=== PATIENT | female | born 2000 | race Caucasian/White ===

== ENCOUNTER 2020-05-13 16:42 | Emergency (ER) | payer SELFPAY ==
[2020-05-13 16:57] VITALS: BP 111/72; PULSE 95; RESP 16; TEMP 36.7; O2SAT 98
--- NOTE | 2020-05-13 17:24 | ED.FEMALEGU ---
HPI - Female Genitourinary General Chief complaint: CERTIFIED PHYSICIAN'S ASSISTANT Stated complaint: + / IUD falling out Time Seen by Provider: 05/13/20 16:57 Source: patient Mode of arrival: ambulatory Limitations: no limitations History of Present Illness HPI Narrative: THis patient is a 20 year old female with history of bipolar who presents for evaluation of a dislodged IUD. She states she had a positive test 2 days. She states she took the test because she woke up and her abdomen was bloated and she 'felt movement . She also noticed that her IUD was dislodged. She states she was pulling on it and it feels like it is caught. She came to ER to get the IUD removed. She states she has irregular menses so she is unsure of LMP . She reports mild spotting today. Related Data Home Medications Medication Instructions Recorded Confirmed No Home Medications 05/13/20 05/13/20 Allergies Allergy/AdvReac Type Severity Reaction Status Date / Time Careless [place] AdvReac Mild POISON ENE Uncoded 05/13/20 17:05 Review of Systems Review of Systems: All systems reviewed & are unremarkable except as noted in HPI and below Gastrointestinal: Gastrointestinal: Denies diarrhea and Denies vomiting Genitourinary: Genitourinary: Denies hematuria, Reports nocturia and Denies flank pain PMFSH Past Medical History Medical History (Updated 05/13/20 @ 19:08 by Saumya Her MD) Bipolar disorder Surgical History Surgical History (Updated 05/13/20 @ 17:28 by Saumya Her MD) No pertinent past surgical history Social History Social History (Updated 05/13/20 @ 17:28 by Saumya Her MD) Smoking status: Never smoker Gender identity (if verbalized by the patient): Female Exam Const: General: alert Orientation/consciousness: patient oriented x3 Eyes: EOM: EOMs intact bilaterally Resp: Effort & Inspection: normal respiratory effort and no retractions Auscultation: clear to auscultation bilaterally Cardio: Rate: regular rate Rhythm: regular rhythm Heart sounds: no murmurs GI: GI Palp: Yes Soft to palpation, No Tenderness to palpation present (GI) and No Guarding due to palpation present (GI) Auscultation: normal bowel sounds : General: Yes no CVA tenderness Speculum Exam - Cervix: Cervical os closed Other: IUD string , appears copper hang out , Skin: General skin exam: normal color Neuro: General: patient oriented x3 and moves all extremities Course Reevaluation(s) Reevaluation #1: I Discussed with patient that her test are negative. She is concerned that she is bloated and swollen. She is refusing imaging because she thinks she is . I have discusse with patient that her test have been negative. I also performed bedside ultrasound and I do not appreciated a . She is stating she would like to be discharged. Date: 05/13/20 Time: 18:40 Consultations Consultation #1: I Discussed with DR. Garcia who is extrusion manager for OBGYN. She states she can see patient tomorrow in clinic at 11 am for IUD removal attempted Date: 05/13/20 Time: 19:05 Vital Signs Vital signs: Vital Signs Temperature 98.1 F 05/13/20 16:57 Pulse Rate 95 05/13/20 16:57 Respiratory Rate 16 05/13/20 16:57 Blood Pressure 111/72 05/13/20 16:57 Pulse Oximetry 98 05/13/20 16:57 Temperature 98.1 F 05/13/20 16:57 Pulse Rate 65 05/13/20 19:20 Respiratory Rate 18 05/13/20 19:20 Blood Pressure 124/85 05/13/20 19:20 Pulse Oximetry 97 05/13/20 19:20 MDM - Female Genitourinary Lab Data Attestation: I reviewed the patient's lab results. Result diagrams: 05/13/20 17:59 05/13/20 17:59 Labs: Lab Results 05/13/20 05/13/20 05/13/20 Range/Units 17:33 17:59 17:59 WBC 10.6 H (4.5-10.0) K/mm3 RBC 5.00 (4.2-5.4) M/mm3 Hgb 15.2 H (12.0-15.0) g/dL Hct 45.9 (37.0-47.0) % MCV 91.8 (80-100) fl MCH 30.4 (26-34) pg MCHC 33
[2020-05-13 17:46] LABS: Add Urine Microscopic? YES; Appearance Urine Clear (Clear); Bacteria Urine Trace /hpf; Bilirubin Urine Negative (Negative); Blood Urine 2+ (Negative); Color Urine Straw (Yellow); Glucose Urine UA Negative (Negative); Ketones Urine Negative (Negative); Leukocyte Esterase Ur Negative LEU/UL (Negative); Mucus Urine Rare /lpf; Nitrate Urine Negative (Negative); Protein Urine Negative (Negative); RBC Urine 0-2 /hpf (0-2); Specific Grav Ur 1.013 (1.001-1.035); Squamous Epithelial Cell Urine Moderate /hpf (Few); Urobilinogen Urine Negative mg/dL (<2.0); WBC Urine 0-3 /hpf
[2020-05-13 18:06] LABS: Basophils Absolute Auto 0.1 K/mm3 (0.0-0.1); Basophils Percent Auto 0.7 % (0.2-1.2); Eosinophils Absolute Auto 0.2 K/mm3 (0-0.3); Eosinophils Percent Auto 1.6 % (0-4.4); Hematocrit 45.9 % (37.0-47.0); Hemoglobin 15.2 g/dL (12.0-15.0); Immature Granulocyte Absolute 0.07 K/mm3 (0.00-0.031); Immature Granulocyte Percent A 0.7 % (0-0.5); Lymphocytes Absolute Auto 2.14 K/mm3 (0.9-3.2); Lymphocytes Percent Auto 20.1 % (18.3-44.2); Mean Corpuscular HGB Conc 33.1 g/dl (32-36); Mean Corpuscular Hemoglobin 30.4 pg (26-34); Mean Corpuscular Volume 91.8 fl (80-100); Mean Platelet Volume 9.3 fl (7.4-10.4); Monocytes Absolute Auto 0.7 K/mm3 (0.1-0.6); Monocytes Percent Auto 6.5 % (2.6-8.5); Neutrophils Absolute Auto 7.5 K/mm3 (1.3-6.7); Neutrophils Percent Auto 70.4 % (45.5-73.1); Platelet Count Result 329 k/mm3 (150-375); Red Cell Distribution Width 12.6 % (11.5-14.5); White Blood Count 10.6 K/mm3 (4.5-10.0)
[2020-05-13 18:20] LABS: Alanine Aminotransferase 17 U/L (4-35); Albumin Level 4.2 g/dL (3.5-5.1); Alkaline Phosphatase 93 U/L (38-126); Anion Gap 8 mmol/L (8-16); Aspartate Amino Transferase 25 U/L (14-36); Bilirubin,Total 0.5 mg/dL (0.2-1.3); Blood Urea Nitrogen 13 mg/dL (7-17); Calcium 9.1 mg/dL (8.4-10.2); Carbon Dioxide 27 mmol/L (22-30); Chloride 104 mmol/L (98-107); Estimated CRCL calculation 115 ml/min; Estimated Glomerular Filt Rate > 60; Glucose 96 mg/dL (65-105); Sodium 139 mmol/L (137-145)
[2020-05-13 18:36] LABS: Beta HCG Quantitative < 2.39 mIU/ML
[2020-05-13 19:20] VITALS: BP 124/85; PULSE 65; RESP 18; O2SAT 97
== END 2020-05-13 19:21 | disposition home or self-care (01) ==
PROVIDERS: Emergency Provider General Practice; PCP Family Medicine Adolescent Medicine
DX: T83.32XA Displacement of intrauterine contraceptive device, initial encounter (principal)
CPT/HCPCS: 36415; 80053; 81001; 81025; 84702; 85025; 99283

== ENCOUNTER 2022-01-30 10:20 | Outpatient (CLI) | payer OTHER, SELFPAY ==
[2022-01-30 10:53] VITALS: BP 99/64; PULSE 99
[2022-01-30 11:01] VITALS: BP 112/64; PULSE 98
[2022-01-30 11:30] VITALS: BP 112/64
== END 2022-01-30 11:38 | disposition home or self-care (01) ==
LOC: ANHOBPP 11:36 → ANHOBOP 11:50 → ANHOBPP 11:50
PROVIDERS: PCP Advanced Practice Midwife; Visit Provider Obstetrics & Gynecology
DX: O42.90 Premature rupture of membranes, unspecified as to length of time between rupture and onset of labor, unspecified weeks of gestation (principal); Z3A.00 Weeks of gestation of pregnancy not specified
CPT/HCPCS: 59025; 84112; 99199

== ENCOUNTER 2022-03-07 12:11 | Outpatient (RCR) | payer OTHER, SELFPAY ==
[2022-03-07 12:58] VITALS: BP 113/73; PULSE 108
== END 2022-03-07 12:30 | disposition home or self-care (01) ==
LOC: ANHOBOP 12:11
PROVIDERS: PCP Advanced Practice Midwife; Visit Provider Obstetrics & Gynecology
DX: O36.8130 Decreased fetal movements, third trimester, not applicable or unspecified (principal); Z3A.33 33 weeks gestation of pregnancy
CPT/HCPCS: 59025

== ENCOUNTER 2022-03-08 15:03 | Inpatient (IN) | payer OTHER, SELFPAY ==
[2022-03-08] VITALS (17 sets, daily range): BP systolic 43–150; BP diastolic 27–136; PULSE 84–177; RESP 18; TEMP 37.2–37.7; O2SAT 98–100; BMI 34.3
--- OUTSIDE RECORDS SUMMARY | 2022-03-08 15:14 | XMS_ITS | Encounter Summary ---
:2000 Author Reason for Visit None recorded. Assessment and Plan 1. Small for gestational age fetus ? US, obstetric, follow-up Discussion Note: None recorded.Patient educational handouts: No information available. Plan of Care Reminders Provider Appointments Induction 03/11/2022 Kasandra Bennett CNM 5:00AM ? Ob Routine 03/18/2022 Dawn llanos MD 1:15PM ? Ob Routine 04/01/2022 Kasandra Bennett CNM 11:15AM Lab None recorded. ? ? Referral None recorded. ? ? Procedures None recorded. ? ? Surgeries None recorded. ? ? Imaging US, Obstetric, Follow-up 01/14/2022 Sae almazan Medications Name Start Date ? ? ? Medications Administered None recorded. Vitals None recorded. Results Lab Results None recorded. Allergies Code Code System Name Reaction Severity Onset NKDA ? ? ? Problems Name Status Onset Date Source ? Active 10/03/2021 ? Mixed Anxiety and Depressive Disorder Active ? ? Small for Gestational Age Fetus Active ? ? Cyst of Right Ovary Active ? ? Procedures Date Name Performed by ? 01/14/2022 US, Obstetric, Follow-up [place] [address] [place] [address] ([address]) Vaccine List None recorded. Social History Tobacco Smoking Status Unknown If Ever Smoked
--- OUTSIDE RECORDS SUMMARY | 2022-03-08 15:14 | XMS_ITS | Encounter Summary ---
:2000 Author Reason for Visit OB visit Assessment and Plan 1. Routine care Discussion Note: None recorded.Patient educational handouts: No information available. Plan of Care Reminders Provider Appointments Induction 03/11/2022 5:00AM Kasandra olson CNM ? Ob Routine 03/18/2022 1:15PM Dawn Aguilar MD ? Ob Routine 04/01/2022 11:15AM Kasandra ca CNM Lab None recorded. ? ? Referral None recorded. ? ? Procedures None recorded. ? ? Surgeries None recorded. ? ? Imaging None recorded. ? ? Medications Name Start Date ? ? ? Medications Administered None recorded. Vitals Height Weight BMI Blood Pressure 5 ft 3 in 186 lbs 32.9 kg/m2 109/73 mm[Hg] Results Lab Results None recorded. Allergies Code Code System Name Reaction Severity Onset NKDA ? ? ? Problems Name Status Onset Date Source ? Active 10/03/2021 ? Mixed Anxiety and Depressive Disorder Active ? ? Small for Gestational Age Fetus Active ? ? Cyst of Right Ovary Active ? ? Procedures Date Name Performed by ? 01/14/2022 , Obstetric, Follow-up [place] [address] [place] [address] ([address]) Vaccine List None recorded. Social History Tobacco Smoking Status Unknown If Ever Smoked Do you have difficulty walking or climbing stairs? N What type of d
--- OUTSIDE RECORDS SUMMARY | 2022-03-08 15:14 | XMS_ITS | Encounter Summary ---
:2000 Author Reason for Visit OB visit OB [id number] EDC 03/16/2022 LMP 05/30/2021 Assessment and Plan Assessment Note Patient is _38__weeks . Discuss ed plan. 1. Routine care Discussion Note: None recorded.Patient [...] BMI Blood Pressure 5 ft 3 in 194 lbs 34.4 kg/m2 114/76 mm[Hg] Results Lab Results None recorded. Allergies Code Code System Name Reaction Severity Onset NKDA ? ? ? Problems Name Status Onset Date Source ? Active 10/03/2021 ? Mixed Anxiety and Depressive Disorder Active ? ? Small for Gestational Age Fetus Active ? ? Cyst of Right Ovary Active ? ? Procedures None recorded. Vaccine List None recorded. Social History Tobacco Smoking Status Unknown If Ever Smoked Do you have difficulty walking or climbing stairs? N What type of diet are you following? REGULAR Are you able to walk? YESWOREST Are you able to care for yourself? Y
--- OUTSIDE RECORDS SUMMARY | 2022-03-08 15:14 | XMS_ITS | Encounter Summary ---
:2000 Author Reason for Visit OB visit OB [id number] EDC 03/16/2022 LMP 05/30/2021 Assessment and Plan Assessment Note Patient is _32__weeks . Discuss ed plan. 1. Routine care [...] BMI Blood Pressure 5 ft 3 in 191 lbs 33.8 kg/m2 111/73 mm[Hg] Results Lab Results None recorded. Allergies Code Code System Name Reaction Severity Onset NKDA ? ? ? Problems Name Status Onset Date Source ? Active 10/03/2021 ? Mixed Anxiety and Depressive Disorder Active ? ? Small for Gestational Age Fetus Active ? ? Cyst of Right Ovary Active ? ? Procedures Date Name Performed by ? 01/14/2022 US, Obstetric, Follow-up [facility] [address] [place] [address] ([address]) Vaccine List
--- OUTSIDE RECORDS SUMMARY | 2022-03-08 15:14 | XMS_ITS | Encounter Summary ---
:2000 Author Reason for Visit OB visit OB [id number] EDC 03/16/2022 LMP Assessment and Plan Assessment Note Patient is _27__weeks . Discuss ed plan. 1. Routine care [...] BMI Blood Pressure 5 ft 3 in 185 lbs 32.8 kg/m2 117/77 mm[Hg] Results Lab Results None recorded. Allergies Code Code System Name Reaction Severity Onset NKDA ? ? ? Problems Name Status Onset Date Source ? Active 10/03/2021 ? Mixed Anxiety and Depressive Disorder Active ? ? Small for Gestational Age Fetus Active ? ? Cyst of Right Ovary Active ? ? Procedures Date Name Performed by ? 12/03/2021 US, Obstetric, Follow-up [place] [address] [place] [address] ([address]) Vaccine List None rec
--- OUTSIDE RECORDS SUMMARY | 2022-03-08 15:14 | XMS_ITS ---
:2000 Author Care Team Providers Name Role Phone Donald Kasandra Migue Primary Care Provider Unavailable Allergies Code Code System Name Reaction Severity Status Onset NKDA ? Medications Name Status Start Date Stop Date ? ? Active ? Not available Problems Name Status Onset Date Source ? Active 10/03/2021 ? Mixed Anxiety and Depressive Disorder Active ? ? Small for Gestational Age Fetus Active ? ? Cyst of Right Ovary Active ? ? Procedures Date Name Performed by ? 09/04/2021 US, Obstetric, 1St Trimester [facility] [address] [place] [address] ([address]) 11/05/2021 , Obstetric, 2Nd or 3Rd Trimester [facility] [address] [place] [address] ([address]) 12/03/2021 , Obstetric, Follow-up [facility] [address] [place] [address] ([address]) 01/14/2022 , Obstetric, Follow-up [facility] [address] [place] [address] ([address]) Results Lab Results Date Name Specimen Result Interpretation Description Value Range Status Address ? 02/18/2022 Culture: ? Result see results ? Final [facility] Strep
--- OUTSIDE RECORDS SUMMARY | 2022-03-08 15:14 | XMS_ITS | Encounter Summary ---
:2000 Author Reason for Visit OB visit OB [id number] EDC 03/16/2022 LMP 05/30/2021 Assessment and Plan Assessment Note Patient is _29__weeks . Discuss ed plan. 1. Routine care [...] BMI Blood Pressure 5 ft 3 in 183 lbs 32.4 kg/m2 129/83 mm[Hg] Results Lab Results None recorded. Allergies Code Code System Name Reaction Severity Onset NKDA ? ? ? Problems Name Status Onset Date Source ? Active 10/03/2021 ? Mixed Anxiety and Depressive Disorder Active ? ? Small for Gestational Age Fetus Active ? ? Cyst of Right Ovary Active ? ? Procedures Date Name Performed by ? 12/03/2021 US, Obstetric, Follow-up [facility] [address] [place] [address] ([address]) Vaccine List
--- OUTSIDE RECORDS SUMMARY | 2022-03-08 15:14 | XMS_ITS | Encounter Summary ---
:2000 Author Reason for Visit OB visit OB [id number] EDC 03/16/2022 LMP 05/30/2021 Assessment and Plan Assessment Note Patient is _36__weeks . Discuss ed plan. 1. Routine care [...] BMI Blood Pressure 5 ft 3 in 196 lbs 34.7 kg/m2 107/70 mm[Hg] Results Lab Results None recorded. Allergies [...]
--- NOTE | 2022-03-08 15:30 | WPDOBADMIT ---
Obstetrics - Admit Note Admission Note: record reviewed. No pertinent additions to the history and/or any subsequent changes in the physical findings that are not consistent with the expected course of the were found. Admitted to in active labor , intact, anticipate vaginal delivery Additions to the history and/or subsequent changes in the physical findings follow. None.
[2022-03-08 15:40] LABS: Basophils Absolute Auto 0.1 K/mm3 (0.0-0.1); Basophils Percent Auto 0.5 % (0.2-1.2); Eosinophils Absolute Auto 0.1 K/mm3 (0-0.3); Eosinophils Percent Auto 0.8 % (0-4.4); Hematocrit 34.4 % (37.0-47.0); Hemoglobin 11.7 g/dL (12.0-15.0); Immature Granulocyte Absolute 0.15 K/mm3 (0.00-0.031); Immature Granulocyte Percent A 1.3 % (0-0.5); Lymphocytes Absolute Auto 2.35 K/mm3 (0.9-3.2); Lymphocytes Percent Auto 19.7 % (18.3-44.2); Mean Corpuscular Hemoglobin 30.2 pg (26-34); Mean Corpuscular Volume 88.9 fl (80-100); Mean Platelet Volume 9.9 fl (7.4-10.4); Monocytes Percent Auto 8.1 % (2.6-8.5); Neutrophils Absolute Auto 8.3 K/mm3 (1.3-6.7); Neutrophils Percent Auto 69.6 % (45.5-73.1); Platelet Count Result 259 k/mm3 (150-375); Red Blood Count 3.87 M/mm3 (4.2-5.4); Red Cell Distribution Width 13.2 % (11.5-14.5); White Blood Count 11.9 K/mm3 (4.5-10.0)
--- NOTE | 2022-03-08 16:02 | LDADM ---
This patient, Sepideh Boswell, was admitted to Labor/Delivery/Recovery 106 on 03/08/22 at 15:03. Plans for labor, pain management and were discussed with patient. Patient/family oriented to hospital policies and general routines including ID bracelet, bed and alarms, visiting hours, pain management, procedures, bathroom and other care routines, personal items, smoking policy, room service/diet and guest tray routines, security routines, and visiting hours. Patient/Family are encouraged to report perceived risks to care and to ask questions if they do not understand what they are told or what they should do. See OBIX for further documentation.
[2022-03-08 16:21] LABS: Amphetamine Screen Urine Negative (Negative); Barbiturate Screen Urine Negative (Negative); Benzodiazepines Screen Urine Negative (Negative); Cannabinoid Screen Urine Positive (Negative); Cocaine Screen Urine Negative (Negative); Methadone Screen Urine Negative (Negative); Opiate Screen Urine Negative (Negative); Phencyclidine Screen Urine Negative (Negative)
[2022-03-08] MEDS: OXYTOCIN 30 UNITS/NS 500 ML 30 UNITS/500 ML BAG 999 UNITS IV CONT (16:32)
--- NOTE | 2022-03-08 16:40 | P.PCNOB_ITS ---
OB - Delivery Note Procedure Delivery date: 03/08/22 Procedure: Delivery augmentation: Rupture of Membranes Delivery monitor: External FHT and External Uterine Route of delivery: Laceration Description: None Quantitative Blood Loss (ml): 60 Anesthesia type: None Disposition: Floor Narrative: mom and baby stable and doing skin to skin [place] Baby Date of : 03/08/22 Time of : 16:30 Weeks of gestation at delivery: 39 gender: Female Weight (pounds): 6 Weight (ounces): 13 presentation: vertex position: Left Occiput Anterior Placenta delivery description: Spontaneous Cord Vessel Description: 3 Vessels, Clamped/Cut and Delayed Cord Clamping score one minute: 8 score five minutes: 9
--- NOTE | 2022-03-08 16:45 | PM.OBPRVD ---
OB - Delivery Note Procedure Laceration Description: None Anesthesia type: None [place] Baby Date of : 03/08/22 Time of : 16:30 Weeks of gestation at delivery: 38 gender: Female Weight (pounds): 6 Weight (ounces): 13 presentation: vertex position: Left Occiput Anterior Placenta delivery description: Spontaneous Cord Vessel Description: 3 Vessels, Clamped/Cut and Delayed Cord Clamping score one minute: 8 score five minutes: 9
[2022-03-08] MEDS: BENZOCAINE 20% AER SPR (*SP) 56 GM CAN 1 SPRAY TOPICAL (19:41)
[2022-03-08] MEDS: WITCH HAZEL 40 PADS 1 PAD TOPICAL (19:41)
--- NOTE | 2022-03-08 21:17 | OBPPTRN ---
03/08/2022 at 1956 Patient transferred to post room wheelchair to room #290. Support person present. Oriented to unit, room, information board, rooming in, admission packet and security measures. Patient verbalizes understanding.
[2022-03-09 03:30] VITALS: BP 102/64; PULSE 86; RESP 16; TEMP 36.8; O2SAT 99
[2022-03-09 05:07] LABS: Hematocrit 31.5 % (37.0-47.0); Hemoglobin 10.7 g/dL (12.0-15.0)
--- NOTE | 2022-03-09 07:42 | PM.OBPNVD ---
OB - PN: Subj Subjective Date/time seen: 03/09/22 07:42 Patient comments: no complaints and pain well controlled baby status: doing well and nursing well [place] feeding status: exclusively breast feeding OB - PN: Obj Data Labs CBC & Chem 7: 03/09/22 04:59 Labs: Laboratory Results - last 24 hr 03/08/22 03/08/22 03/08/22 15:32 15:32 15:50 WBC 11.9 H RBC 3.87 L Hgb 11.7 L D Hct 34.4 L MCV 88.9 MCH 30.2 MCHC 34.0 RDW 13.2 Plt Count 259 MPV 9.9 Immature Gran % (Auto) 1.3 H Neut % (Auto) 69.6 Lymph % (Auto) 19.7 [place] % (Auto) 8.1 Eos % (Auto) 0.8 Baso % (Auto) 0.5 Lymph # (Auto) 2.35 [place] # (Auto) 1.0 H Eos # (Auto) 0.1 Baso # (Auto) 0.1 Abs Immat Gran (auto) 0.15 H Absolute Neuts (auto) 8.3 H Absolute Nucleated RBC 0.0 Nucleated RBC % 0.0 Urine Opiates Screen Negative Urine Methadone Screen Negative Ur Barbiturates Screen Negative Ur Phencyclidine Scrn Negative Ur Amphetamine Screen Negative U Benzodiazepines Scrn Negative Urine Cocaine Screen Negative U Cannabinoids Screen Positive A Blood Type O Positive Antibody Screen Negative 03/09/22 04:59 WBC RBC Hgb 10.7 L Hct 31.5 L MCV MCH MCHC RDW Plt Count MPV Immature Gran % (Auto) Neut % (Auto) Lymph % (Auto) [place] % (Auto) Eos % (Auto) Baso % (Auto) Lymph # (Auto) [place] # (Auto) Eos # (Auto) Baso # (Auto) Abs Immat Gran (auto) Absolute Neuts (auto) Absolute Nucleated RBC Nucleated RBC % Urine Opiates Screen Urine Methadone Screen Ur Barbiturates Screen Ur Phencyclidine Scrn Ur Amphetamine Screen U Benzodiazepines Scrn Urine Cocaine Screen U Cannabinoids Screen Blood Type Antibody Screen OB - PN A/P Plan day: 1 Plan: routine care Comments: home tomorrow. Time Spent With Patient Time: Total time spent is greater than 50% in coordination of care (as documented) at patient's floor/unit and/or counseling patient: Time with patient: less than 15 minutes Exam Narrative: NAD abdomen soft, nontender, fundus firm below the umbilicus Extremities nontender, 1+ edema
[2022-03-09 08:29] LABS: Rapid Plasma Reagin Non-Reactive (NonReactive)
[2022-03-09] MEDS: MULTIVIT/MIN/PREN/FOL AC/IRON TABLET 1 TAB PO (08:45)
[2022-03-09 08:46] VITALS: BP 113/74; PULSE 88; RESP 16; TEMP 36.9; O2SAT 96
[2022-03-09] MEDS: DOCUSATE SODIUM 100 MG CAPSULE PO (08:46)
[2022-03-09] MEDS: TETANUS,DIPHTHERIA,AC PERTUSSIS ADULT (0.5 ML) BOOSTRIX IM (08:46)
--- NOTE | 2022-03-09 10:14 | PC.NURSE ---
[id number] Introductions were made, then consulted with patient to assess needs related to . Resources provided for inpatient and outpatient services using a resource guide and mom/baby guide. Primary RN is present and is aware of the infant being gaggy and yellow/greenish spit up on the blankets in the crib. Consult requested related to having not breastfed since 0340. Mother is willing and receptive to learning. Father of baby is actively supportive as well. Mother works well with her infant with encouragement and education. Encouraged understanding of the benefits of skin to skin (unwrapping infant and placing vertically on her chest), responsive feeding and how to watch for early feeding signs, frequency of feeding on demand about every 8-12 times in 24 hours (every 2-3 hours), milk production, duration of feeding, signs of adequate intake/output and how to record on the feeding sheet. Reviewed positioning and ear, shoulder, hip alignment, supporting the breast, asymmetrical latch (off-center), and leading with the chin with a big open side gape. opens and holds nipple in the mouth. No efforts to suckle. After several attempts and no latch mother was educated on the technique of hand expression. Breast milk was hand expressed and collected on a spoon. was encouraged to suck on a finger to reward with a small amount of colostrum given with a syringe. takes several minutes and jaw massage to begin sucking. Infant takes several minutes to figure out how to swallow small amounts of colostrum. Reviewed good handwashing when or touching the breast/nipples to prevent infection. After 1ml of colostrum infant spits up copious amounts of mucous/colostrum clearing fluid. Infant has a moderate to large void and is now quiet, alert and awake skin to skin with mother as she eats her breakfast with the help of the father of the baby. Resources used to facilitate learning were used with the tool and mom/baby guide. Mother voiced understanding and may need reinforcement of teaching of responsive feedings, stimulating with skin to skin, hand expressed colostrum, massage touch, talking to to encourage if it has been 2 -3 hours since the start of the last , to call if does not wake to latch or there is discomfort with . Reported to the primary RN.
--- NOTE | 2022-03-09 11:39 | PC.NURSE ---
1132 - 1135 Encouraged skin to skin and stimulating to wake and breastfeed.
[2022-03-09 11:41] VITALS: BP 118/72; PULSE 88; RESP 16; TEMP 36.3; O2SAT 99
--- NOTE | 2022-03-09 11:47 | PCCCNOTE ---
Care Coordination met with pt. and FOB this morning to discuss discharge planning. Pt.'s current D/C plan is to return home with FOB family. Pt. lives with her 7 year old son. Pt. states that she has everything needed to safely bring baby home. They have a place for baby to sleep and a car seat. Pt. will continue to attempt to breast feed. She is not current with WIC and denies need for additional resources at this time. Pt. and baby tested positive for THC. Pt. states she used THC through her to assist with pelvic pain. Pt. aware that CC will make an online report for drug use. She has no questions or concerns at this time. Intake ID number [id number].
--- NOTE | 2022-03-09 12:31 | PC.NURSE ---
1200- Purposeful rounding made to consult with mother with no history with her first child who is age 7 to check on progress of waking and stimulating infant to breastfeed. Infant is dangling to the left breast, with no latch and no active suckling. Parents states had just breastfed 5 minutes on each breast, opened wide, sucking with suction, mother denied pain of pinching or biting, Father of baby states they witnessed swallowing. Encouraged parents to call and have a latch assessed today. Mother voiced understanding of the education shared, calling for assistance if the does not latch or if there is discomfort with . Reported to the primary RN.
--- NOTE | 2022-03-09 13:50 | PC.NURSE ---
[id number] Mother demonstrates her ability to independently latch with appropriate positioning/alignment. She denies any nipple discomfort and is responsively . is currently meeting outcomes for weight, output, jaundice and feeding frequencies of 8-12 times in 24 hours. Parent voiced understanding of visualizing effective and what the rocking motion looks like when she swallows. Mother declines any additional assistance/education at this time. Mother is encouraged to call for assistance if her infant doesn?t latch or there is discomfort with latching. Reported to the primary RN.
[2022-03-09 17:35] VITALS: BP 118/75; PULSE 82; RESP 16; TEMP 37; O2SAT 97
[2022-03-09 21:45] VITALS: BP 111/72; PULSE 80; RESP 18; TEMP 37.3
[2022-03-10 07:55] VITALS: BP 112/70; PULSE 98; RESP 16; TEMP 36.9; O2SAT 99
--- NOTE | 2022-03-10 08:01 | PM.OBPNVD ---
OB - PN: Subj Subjective Date/time seen: 03/10/22 08:01 Patient comments: no complaints and pain well controlled baby status: doing well and nursing well [place] feeding status: exclusively breast feeding OB - PN: Obj Data Labs CBC & Chem 7: 03/09/22 04:59 Labs: Laboratory Results - last 24 hr 03/08/22 15:32 RPR Non-reactive OB - PN A/P Assessment and Plan (1) , delivered: Code(s): O80 - Encounter for full-term uncomplicated delivery Status: Acute Plan day: 2 Plan: routine care and discharge home Time Spent With Patient Time: Total time spent is greater than 50% in coordination of care (as documented) at patient's floor/unit and/or counseling patient: Time with patient: less than 15 minutes Exam Narrative: NAD abdomen soft, nontender, fundus firm below the umbilicus Extremities nontender, 1+ edema
--- NOTE | 2022-03-10 08:04 | P.DS_ITS ---
DS: Admitting Diagnosis Discharge Date 03/10/22 Admitting Diagnosis labor at term DS: Discharge Diagnosis Discharge Diagnosis (1) , delivered: Code(s): O80 - Encounter for full-term uncomplicated delivery Status: Acute OB - DS: Summary Hospital Course Hospital Course: Sepideh was admitted in labor at term. She proceeded to have an uncomplicated vaginal delivery and course and was discharged home on PPD 2. OB Procedures : Ultrasound OB Procedures Intrapartum: Spontaneous Vag Delivery OB Procedures: : None Peripartum Data Delivery Method: Natural Vaginal complications: none Status at Discharge Functional status at discharge: independent ambulation Time Spent with Patient Time attestation: Total time spent providing and/or coordinating discharge services: DS: Data Data Completed and Pending Labs on day of discharge: Labs from last 24 hours 03/08/22 15:32 RPR Non-reactive Discharge Plan Discharge Attending physician on discharge: Dawn Aguilar Discharging Clinician: Dawn Aguilar Anticipated Discharge Date/Time: 03/10/22 08:03 Patient Disposition: Home, Self-Care Activity: pelvic rest Diet: regular Discharge Instructions: ibuprofen 600 mg every 6 hours as needed Patient Instructions: Antibiotic Form Stand Alone Forms: General Discharge Information Follow-up/Referrals: Santiago Anguol MD [Physician] - 4 Weeks Discharge Medications: Continued 28-800 mg-mcg Tablet 1 tablet PO DAILY Date of admission: 03/08/22 15:03 Primary Care Provider: PHYSICIAN,FISHING ROD MECHANIC Admitting Provider: Santiago Angulo Attending physician on admission: Santiago Angulo Condition: Stable
--- NOTE | 2022-03-10 09:11 | PC.NURSE ---
[id number] Mother demonstrates she is able to independently latch with a non-conventional cross cradle position. Father of baby is actively supporting. She denies any nipple discomfort and is responsively . is currently meeting outcomes for weight, output, jaundice and feeding frequencies of 8-12 times in 24 hours. is swallowing at the breast and mother is compressing her breast gently to encourage milk expression. RN offered to check blood sugar one hour after feeding and mother instructed to call out for a blood sugar before the next breastfeed. POC is to attempt to breastfeed every 2-2.5 hours today. Mother is encouraged to call for assistance if her infant doesn?t latch or there is discomfort with latching. Mother voiced understanding of information shared. Reported to the primary RN.
[2022-03-10] MEDS: DOCUSATE SODIUM 100 MG CAPSULE PO (09:21)
[2022-03-10] MEDS: MULTIVIT/MIN/PREN/FOL AC/IRON TABLET 1 TAB PO (09:21)
--- NOTE | 2022-03-10 15:56 | PC.NURSE ---
[id number] Mother is demonstrating her ability to independently latch optimally without discomfort. Reminded parents to use good handwashing technique to prevent infection. Mother is feeding appropriately for growth of infant and understands stimulating infant to eat if needed. Infant has had appropriate feedings in the last 24 hours meets the outcomes for weight, output and jaundice at this time. Mother states she is confident to continue effectively her at home or when to call for assistance and denies any additional assistance or education at this time. Reinforced understanding of milk production, transition of milk, signs of adequate intake, prevention/relief of engorgement, responsive after visualizing feeding cues, the different methods of stimulating infant to breastfeed 2-3 hours after the start of the last feeding, community resources, medication information reviewed per [facility] and when to call a provider using the resource of the mom and baby guide/[facility] website. Mother voiced understanding of the education shared. Reported to the primary RN.
--- NOTE | 2022-03-10 19:52 | PC.NURSE ---
1300 Patient viewed the discharge video Mother & Baby Care, The First Two Weeks . Patient was given the opportunity and encouraged to ask questions. Patient verbalized understanding of information shared and has been given the mother/baby guide for home reference.
[2022-03-11 08:32] VITALS: BP 123/73; PULSE 83; RESP 20; TEMP 37.3; O2SAT 99
== END 2022-03-10 16:42 | disposition home or self-care (01) | DRG 807 ==
LOC: ANHOB2 03-10 12:27 → ANHLDR 03-12 10:54 → ANHOB2 03-12 10:54
PROVIDERS: Advanced Practice Midwife; Admitting Provider Obstetrics & Gynecology; Visit Provider Obstetrics & Gynecology
DX: O80 Encounter for full-term uncomplicated delivery (principal); Z37.0 Single live birth; Z3A.38 38 weeks gestation of pregnancy; Z23 Encounter for immunization
CPT/HCPCS: 36415; 59025; 80307; 85014; 85018; 85025; 86592; 86850; 86900; 86901; 90471; 90686; 90715; A9270; G0008; J2590